=== PATIENT | male | born 1945 | race Caucasian/White ===

== ENCOUNTER → 2016-07-07 | Outpatient (CLI) | payer MEDICARE ==
[~2016-07-07] MED LIST: ALLOPURINOL300 MG PO; APAP/HYDROCODON1 T46 PO; ASPIRIN81 M1 PO; CATAFLAM50 MG PO; COLCRYS0.6 MG PO; COREG25 MG PO; COREG3.125 MG PO; COUMADIN4 M1 PO; COUMADIN5 M2 PO; COUMADIN6 M1 PO; COUMADIN7.5 M1 PO; DARVOCET N 1001 TAB PO; DAYPRO600 M1 PO; DIPHENHYDRAMINE25 M2 PO; FISH OIL 10001000 MG PO; FLEXERIL10 MG PO; INDOCIN25 MG PO; INDOCIN50 MG PO; JANTOVEN6 MG PO; K-DUR20 MEQ PO; LIPITOR20 MG PO; LOVENOX80 MG/0.8 SC; Lotrimin 1%15 GM PO; MEDROL DOSEPAK4 MG PO; MULTI VITAMINS1 TAB PO; MULTIPLE VITAMI1 CAP PO; NEXIUM20 MG PO; NORFLEX100 MG PO; PERCOCET 325 MG1 TA3 PO; PHENERGAN25 M1 PO; POTASSIUM20 MEQ PO; TRAMADOL HCL50 MG PO; TRIAM/HCTZ; TRIAMTERENE/HCT1 TAB PO; TRILIPIX; TRILIPIX45 MG PO; ULTRAM50 MG PO; VICO10300 PO; VICODIN 5/500 505 MG PO; VICODIN 500 MG-1 TAB PO; VITAMIN D; VITAMIN D1000 IU PO; ZOFRAN ODT4 MG SL; [UNRECOGNIZED DRUG - REMARK]; [UNRECOGNIZED DRUG - REMARK]
== END | disposition home or self-care (01) ==
LOC: RAD 02:57
DX: K57.90 Diverticulosis of intestine, part unspecified, without perforation or abscess without bleeding (principal); F45.8 Other somatoform disorders; R22.1 Localized swelling, mass and lump, neck

== ENCOUNTER → 2017-07-06 | Outpatient (CLI) | payer MEDICARE ==
[2017-07-06 08:43] LABS: CREATININE 0.95 mg/dL (0.70-1.30)
== END | disposition home or self-care (01) ==
LOC: CT 00:26 → LAB 00:26 → CT 09:00
PROVIDERS: Radiology Diagnostic Radiology
DX: I71.2 Thoracic aortic aneurysm, without rupture (principal); Z95.1 Presence of aortocoronary bypass graft; Z85.828 Personal history of other malignant neoplasm of skin

== ENCOUNTER → 2017-12-05 | Outpatient (CLI) | payer MEDICARE | END | disposition home or self-care (01) | LOC: CT 12:54 → LAB 12:54 | DX: M47.892 Other spondylosis, cervical region (principal); E04.1 Nontoxic single thyroid nodule ==

== ENCOUNTER → 2018-03-29 | Outpatient (CLI) | payer MEDICARE ==
[~2018-03-29] MED LIST changes: +AMLODIPINE BES2.5 MG PO; +LISINOPRIL20 MG PO
== END | disposition home or self-care (01) ==
LOC: CT 13:13
DX: I72.8 Aneurysm of other specified arteries (principal)

== ENCOUNTER → 2018-05-17 | Outpatient (CLI) | payer MEDICARE ==
--- NOTE | ~2018-05-17 | EKG ---
[place], [place] ELECTROCARDIOGRAM REPORT NAME: BILL PEREIRA UNIT #: [id number] ROOM: DOCTOR: EPIPHANY DRAFT REPORT BIRTHDATE: [birth year] [facility] Test Date: 2018-05-17 Test Time: 09:27:43 Pat Name: BILL PEREIRA Department: Room: Gender: Inspecting Machine Adjuster: Lisa Maldonado : 1945 Requested By: MIKEY ROSS Order Number: [id number] Reading MD: Ric Erwin MD Measurements Intervals [place] Rate: 55 P: 30 CO: 164 QRS: 12 QRSD: 104 T: 21 QT: 436 QTc: 417 Interpretive Statements Sinus bradycardia Baseline wander in lead(s) II,III,aVF,V5 No previous ECG available for comparison Electronically Signed On 05-17-2018 16:03:30 PST by Ric Erwin MD CM:EKGRPT:ELECTROCARDIOGRAM REPORT [id number] MIKEY ROSS EPIPHANY DRAFT REPORT MIKEY JAINREY CODY
[2018-05-17 09:29] LABS: BASO % 0.5 % (0.0-1.0); EOS # 0.1 10*3/uL (0.0-0.4); EOS % 1.2 % (1.0-4.0); HEMATOCRIT 43.1 % (42.0-52.0); HEMOGLOBIN 13.7 g/dl (14.0-18.0); LYMPH # 1.4 10*3/uL (1.3-4.4); LYMPH % 24.9 % (27.0-41.0); MEAN CORPUSCULAR HGB 30.5 pg (27.0-31.0); MEAN CORPUSCULAR HGB CONC 31.8 g/dl (33.0-37.0); MEAN PLATELET VOLUME 13.4 fl (9.6-12.3); MONO # 0.5 10*3/uL (0.1-1.0); MONO % 9.3 % (3.0-9.0); NEUT # 3.7 10*3/uL (2.3-7.9); NEUT % 63.9 % (47.0-73.0); PLATELET COUNT AUTOMATED 126 10*3/uL (130-400); RED BLOOD COUNT 4.49 10*6/uL (4.50-5.90); RED CELL DISTRI WIDTH 12.6 % (0-14.5); WHITE BLOOD COUNT 5.8 10*3/uL (4.8-10.8)
[2018-05-17 09:32] LABS: BUN 17 mg/dl (7-24); CHLORIDE 104 mmol/L (98-107); CREATININE 0.93 mg/dL (0.70-1.30); POTASSIUM 4.2 mmol/L (3.5-5.1); SODIUM 140 mmol/L (136-145)
[2018-05-17 09:40] LABS: INTERNATIONAL NORM RATIO 1.1 (2.0-3.5)
== END | disposition home or self-care (01) ==
LOC: LAB 08:36
PROVIDERS: Internal Medicine
DX: I71.2 Thoracic aortic aneurysm, without rupture (principal); Z01.818 Encounter for other preprocedural examination; I10 Essential (primary) hypertension

== ENCOUNTER 2018-10-14 12:20 | Emergency (ER) | payer MEDICARE ==
[~2018-10-14] VITALS: Ht 177.8 cm; Wt 74.8 kg
[2018-10-14 12:22] VITALS: BP 131/72
[2018-10-14 12:40] LABS: BILIRUBIN NEGATIVE (NEGATIVE); BLOOD NEGATIVE (NEGATIVE); CLARITY CLEAR (CLEAR); COLOR STRAW (YELLOW); GLUCOSE NEGATIVE (NEGATIVE); KETONE NEGATIVE (NEGATIVE); LEUKO ESTERASE NEGATIVE (NEGATIVE); NITRITE NEGATIVE (NEGATIVE); UROBILINOGEN 0.2 E.U./dl (0.2-1.0)
[2018-10-14 12:55] LABS: BASO % 0.3 % (0.0-1.0); EOS # 0.1 10*3/uL (0.0-0.4); EOS % 1.3 % (1.0-4.0); HEMATOCRIT 37.8 % (42.0-52.0); HEMOGLOBIN 12.2 g/dl (14.0-18.0); LYMPH # 1.8 10*3/uL (1.3-4.4); LYMPH % 28.2 % (27.0-41.0); MEAN CELL VOLUME 91.7 fl (80.0-94.0); MEAN CORPUSCULAR HGB 29.6 pg (27.0-31.0); MEAN CORPUSCULAR HGB CONC 32.3 g/dl (33.0-37.0); MEAN PLATELET VOLUME 11.7 fl (9.6-12.3); MONO # 0.5 10*3/uL (0.1-1.0); MONO % 7.3 % (3.0-9.0); NEUT % 62.7 % (47.0-73.0); PLATELET COUNT AUTOMATED 164 10*3/uL (130-400); RED BLOOD COUNT 4.12 10*6/uL (4.50-5.90); RED CELL DISTRI WIDTH 14.3 % (0-14.5); WHITE BLOOD COUNT 6.3 10*3/uL (4.8-10.8)
[2018-10-14 13:10] LABS: ALBUMIN 3.6 gm/dl (3.1-4.5); ALKALINE PHOSPHATASE 72 U/L (45-117); BUN 15 mg/dl (7-24); CHLORIDE 111 mmol/L (98-107); CREATININE 0.79 mg/dL (0.70-1.30); LIPASE 126 U/L (73-393); SGOT/AST 27 IU/L (3-35); SGPT/ALT 23 U/L (12-78); SODIUM 145 mmol/L (136-145); TOTAL PROTEIN 6.9 gm/dL (6.4-8.2)
[2018-10-14 13:20] LABS: RBC 0-2 rbc/hpf (0-2)
== END 2018-10-14 15:03 | disposition home or self-care (01) ==
LOC: ED 12:20
PROVIDERS: Emergency Medicine
DX: M54.9 Dorsalgia, unspecified (principal); R10.9 Unspecified abdominal pain; R42 Dizziness and giddiness; R06.02 Shortness of breath; Z91.041 Radiographic dye allergy status; Z88.6 Allergy status to analgesic agent; Z88.8 Allergy status to other drugs, medicaments and biological substances; Z88.5 Allergy status to narcotic agent; Z79.899 Other long term (current) drug therapy; Z90.49 Acquired absence of other specified parts of digestive tract; Z87.442 Personal history of urinary calculi; X50.0XXA Overexertion from strenuous movement or load, initial encounter; Y93.89 Activity, other specified; Y92.89 Other specified places as the place of occurrence of the external cause; Y99.8 Other external cause status

== ENCOUNTER 2019-06-23 15:54 | Inpatient (IN) | payer MEDICARE ==
[~2019-06-23] VITALS: Ht 177.8 cm; Wt 83.9 kg
[2019-06-23 16:14] VITALS: BP 165/76
[2019-06-23 16:48] LABS: BASO % 0.4 % (0.0-1.0); EOS # 0.1 10*3/uL (0.0-0.4); EOS % 0.9 % (1.0-4.0); HEMATOCRIT 40.7 % (42.0-52.0); LYMPH # 1.5 10*3/uL (1.3-4.4); LYMPH % 27.8 % (27.0-41.0); MEAN CELL VOLUME 96.9 fl (80.0-94.0); MEAN CORPUSCULAR HGB 31.4 pg (27.0-31.0); MEAN CORPUSCULAR HGB CONC 32.4 g/dl (33.0-37.0); MEAN PLATELET VOLUME 11.5 fl (9.6-12.3); MONO # 0.5 10*3/uL (0.1-1.0); MONO % 8.7 % (3.0-9.0); NEUT # 3.3 10*3/uL (2.3-7.9); PLATELET COUNT AUTOMATED 155 10*3/uL (130-400); RED CELL DISTRI WIDTH 13.1 % (0-14.5); WHITE BLOOD COUNT 5.3 10*3/uL (4.8-10.8)
[2019-06-23 17:00] LABS: INTERNATIONAL NORM RATIO 1.7 (2.0-3.5)
[2019-06-23 17:05] LABS: ALBUMIN 3.6 gm/dl (3.1-4.5); ALKALINE PHOSPHATASE 56 U/L (45-117); BUN 16 mg/dl (7-24); CHLORIDE 113 mmol/L (98-107); CREATININE 0.88 mg/dL (0.70-1.30); LIPASE 114 U/L (73-393); POTASSIUM 3.8 mmol/L (3.5-5.1); SGOT/AST 26 IU/L (3-35); SGPT/ALT 27 U/L (12-78); SODIUM 144 mmol/L (136-145); TOTAL PROTEIN 6.9 gm/dL (6.4-8.2)
[2019-06-23 17:08] LABS: TROPONIN I < 0.015 ng/ml (<0.045)
[2019-06-23 17:40] VITALS: BP 149/71
[2019-06-23 18:35] VITALS: BP 140/70
[2019-06-23 19:26] VITALS: BP 119/77
[2019-06-23 20:20] VITALS: BP 130/84
[2019-06-23] MEDS ORDERED: WARFARIN SODIUM3 MG PO (20:59)
[2019-06-23] MEDS ORDERED: WARFARIN SOD5 MG PO (20:59)
[2019-06-23] MEDS ORDERED: METOPROLOL25 MG PO (21:02)
[2019-06-24] VITALS: BP 130/80
[2019-06-24 06:05] LABS: ALBUMIN 3.6 gm/dl (3.1-4.5); ALKALINE PHOSPHATASE 56 U/L (45-117); BUN 14 mg/dl (7-24); CHLORIDE 109 mmol/L (98-107); CHOLESTEROL 138 mg/dL (<200); CREATININE 0.76 mg/dL (0.70-1.30); HDL CHOLESTEROL 55 mg/dl (40-60); LDL CHOLESTEROL 64 mg/dL (9-159); PHOSPHOROUS 2.5 mg/dL (2.5-4.9); POTASSIUM 3.6 mmol/L (3.5-5.1); SGOT/AST 29 IU/L (3-35); SGPT/ALT 24 U/L (12-78); SODIUM 141 mmol/L (136-145); TRIGLYCERIDES 95 mg/dl (<150); VLDL CHOLESTEROL 19 mg/dL (6-40)
[2019-06-24 06:14] LABS: BASO % 0.5 % (0.0-1.0); EOS # 0.1 10*3/uL (0.0-0.4); EOS % 1.7 % (1.0-4.0); HEMATOCRIT 40.1 % (42.0-52.0); LYMPH % 30.5 % (27.0-41.0); MEAN CELL VOLUME 96.2 fl (80.0-94.0); MEAN CORPUSCULAR HGB 30.9 pg (27.0-31.0); MEAN CORPUSCULAR HGB CONC 32.2 g/dl (33.0-37.0); MEAN PLATELET VOLUME 12.1 fl (9.6-12.3); MONO # 0.5 10*3/uL (0.1-1.0); MONO % 8.3 % (3.0-9.0); NEUT # 3.8 10*3/uL (2.3-7.9); NEUT % 58.7 % (47.0-73.0); PLATELET COUNT AUTOMATED 167 10*3/uL (130-400); RED BLOOD COUNT 4.17 10*6/uL (4.50-5.90); RED CELL DISTRI WIDTH 13.1 % (0-14.5); WHITE BLOOD COUNT 6.5 10*3/uL (4.8-10.8)
[2019-06-24 06:56] LABS: VITAMIN D, 25-HYDROXY 21.1 ng/mL (30-100)
[2019-06-24 08:00] VITALS: BP 148/78
[2019-06-24 12:00] VITALS: BP 130/70
== END 2019-06-24 14:47 | disposition home health service (06) | DRG 206 ==
LOC: ED 15:54 → 5E 18:51 → EDHOLD 18:51 → 5E 19:37
PROVIDERS: Emergency Medicine; Internal Medicine; ADMIT Family Medicine
DX: M94.0 Chondrocostal junction syndrome [Tietze] (principal); D68.69 Other thrombophilia; R50.9 Fever, unspecified; E87.8 Other disorders of electrolyte and fluid balance, not elsewhere classified; M19.90 Unspecified osteoarthritis, unspecified site; M1A.9XX0 Chronic gout, unspecified, without tophus (tophi); Z20.828 Contact with and (suspected) exposure to other viral communicable diseases; R05 Cough; R06.00 Dyspnea, unspecified; R51 Headache; D53.9 Nutritional anemia, unspecified; Z88.2 Allergy status to sulfonamides; Z88.6 Allergy status to analgesic agent; Z91.041 Radiographic dye allergy status; Z88.8 Allergy status to other drugs, medicaments and biological substances; Z88.5 Allergy status to narcotic agent; Z87.442 Personal history of urinary calculi; Z95.2 Presence of prosthetic heart valve; Z90.49 Acquired absence of other specified parts of digestive tract; Z82.49 Family history of ischemic heart disease and other diseases of the circulatory system; Z79.01 Long term (current) use of anticoagulants

== ENCOUNTER 2019-10-17 16:56 | Observation (INO) | payer MEDICARE ==
[~2019-10-17] VITALS: Ht 177.8 cm; Wt 86.3 kg
[~2019-10-17 16:56] MED LIST changes: +METOPROLOL25 MG PO; +WARFARIN SOD5 MG PO; +WARFARIN SODIUM3 MG PO
[2019-10-17 17:00] VITALS: BP 129/69
--- NOTE | 2019-10-17 18:15 | NUR ---
NECK COLLAR APPLIED PER PHYSICIAN ORDER. PT TOLERATED.
[2019-10-17 18:27] LABS: BASO % 0.2 % (0.0-1.0); EOS % 0.1 % (1.0-4.0); HEMATOCRIT 40.6 % (42.0-52.0); LYMPH # 1.1 10*3/uL (1.3-4.4); MEAN CELL VOLUME 93.1 fl (80.0-94.0); MEAN CORPUSCULAR HGB 30.7 pg (27.0-31.0); MEAN PLATELET VOLUME 11.6 fl (9.6-12.3); MONO # 0.2 10*3/uL (0.1-1.0); MONO % 2.3 % (3.0-9.0); NEUT # 8.8 10*3/uL (2.3-7.9); NEUT % 86.2 % (47.0-73.0); PLATELET COUNT AUTOMATED 165 10*3/uL (130-400); RED BLOOD COUNT 4.36 10*6/uL (4.50-5.90); RED CELL DISTRI WIDTH 13.2 % (0-14.5); WHITE BLOOD COUNT 10.2 10*3/uL (4.8-10.8)
[2019-10-17 18:38] LABS: ACT PARTIAL THROMBO TIME 39.5 SECONDS (20.0-32.1); INTERNATIONAL NORM RATIO 2.4 (2.0-3.5)
[2019-10-17 18:40] LABS: CLARITY CLEAR (CLEAR); COLOR YELLOW (YELLOW); GLUCOSE NEGATIVE (NEGATIVE)
[2019-10-17 18:41] LABS: BILIRUBIN NEGATIVE (NEGATIVE); BLOOD NEGATIVE (NEGATIVE); KETONE NEGATIVE (NEGATIVE); LEUKO ESTERASE NEGATIVE (NEGATIVE); NITRITE NEGATIVE (NEGATIVE); SPECIFIC GRAVITY 1.005 (1.005-1.030); UROBILINOGEN 0.2 E.U./dl (0.2-1.0)
[2019-10-17 18:42] LABS: ALBUMIN 3.8 gm/dl (3.1-4.5); ALKALINE PHOSPHATASE 55 U/L (45-117); BUN 10 mg/dl (7-24); CHLORIDE 106 mmol/L (98-107); CREATININE 0.94 mg/dL (0.70-1.30); LIPASE 104 U/L (73-393); POTASSIUM 3.4 mmol/L (3.5-5.1); SGOT/AST 30 IU/L (3-35); SGPT/ALT 33 U/L (12-78); SODIUM 142 mmol/L (136-145); TOTAL PROTEIN 7.5 gm/dL (6.4-8.2)
[2019-10-17 18:47] LABS: TROPONIN I < 0.015 ng/ml (<0.045)
[2019-10-17 18:48] LABS: BACTERIA TRACE; EPITHELIAL CELLS 0-2; RBC 0-2 rbc/hpf (0-2); WBC 0-2 wbc/hpf (0-5)
[2019-10-17 19:18] VITALS: BP 144/63
--- NOTE | 2019-10-17 19:18 | NUR ---
HAND OFF RECEIVED FROM DARRYN CHAU PT RESTING WITH EYES CLOSED UPON ENTERING ROOM AND AWAKENS TO VERBAL STIMULI. ALERT AND ORIENTED. SKIN WARM AND DRY. RESPIRATIONS EVEN AND UNLABORED. DENYING ANY PAINS AT TIME. DENYING ANY NAUSEA OR VOMITING AT TIME. PT STATES THAT HE WAS CUTTING HIS GRASS TODAY AND HAD A FEW BEERS. STATES THAT HE DRINKS 2-3 BEERS ONLY WHEN CUTTING GRASS ABOUT 2-3 TIMES A WEEK. STATES THAT HE WAS NAUSEATED AND BEGAN VOMITING WHEN HE RAN OUT SIDE FALLING DOWN 3-4 STEPS UNABLE TO GET UP. C-COLLAR REMAINS ON. PT FOLLOWING COMMANDS. SPEECH CLEAR. NO DISTRESS NOTED AT TIME. CONTINUING TO MONITOR.
--- NOTE | 2019-10-17 21:01 | NUR ---
attempted to call krystle as requested by pt to update her about him. no answer and voicemail is full.
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
[2019-10-17 22:30] VITALS: BP 146/70
[2019-10-17 22:34] VITALS: BP 135/61
--- NOTE | 2019-10-17 23:30 | NUR ---
A 74, admitted to , under the services of BIJU Blanco DO with a diagnosis of ALCOHOL INTOXICATION. Chief complaint is FELL DOWN STEPS, PASSED OUT, VOMITTING. Patient arrived via stretcher from ER. Monitor applied. Initial assessment completed. Vital signs taken and recorded. BIJU BLANCO DO notified of admission to the unit. Orders received. See assessment for past medical history, medications and allergies. Patient and/or family oriented to unit. [address] visitation policy reviewed. Clothing/patient valuable form completed. ANT RUVALCABA
[2019-10-18] MEDS ORDERED: MVI PO (00:02)
[2019-10-18] MEDS ORDERED: IRON PO (00:02)
--- NOTE | 2019-10-18 00:28 | NUR ---
MEDICATED WITH PO NORCO ORDERED PER PT REQUEST FOR C/O NECK/BACK/HEADACHE PAIN RATED 7/10.
--- NOTE | 2019-10-18 01:07 | NUR ---
MESSAGE LEFT FOR CONSULT WITH ANSWERING SERVICE.
--- NOTE | 2019-10-18 01:53 | NUR ---
MEDICATION EFFECTIVE PAIN.
[2019-10-18 06:10] LABS: ALBUMIN 3.4 gm/dl (3.1-4.5); BUN 11 mg/dl (7-24); CHLORIDE 111 mmol/L (98-107); POTASSIUM 3.9 mmol/L (3.5-5.1); SODIUM 143 mmol/L (136-145)
[2019-10-18 06:11] LABS: BASO % 0.4 % (0.0-1.0); EOS # 0.1 10*3/uL (0.0-0.4); EOS % 1.5 % (1.0-4.0); HEMATOCRIT 42.1 % (42.0-52.0); LYMPH # 2.3 10*3/uL (1.3-4.4); LYMPH % 32.5 % (27.0-41.0); MEAN CELL VOLUME 95.7 fl (80.0-94.0); MEAN CORPUSCULAR HGB 30.2 pg (27.0-31.0); MEAN CORPUSCULAR HGB CONC 31.6 g/dl (33.0-37.0); MEAN PLATELET VOLUME 11.8 fl (9.6-12.3); MONO # 0.6 10*3/uL (0.1-1.0); MONO % 8.2 % (3.0-9.0); NEUT # 4.1 10*3/uL (2.3-7.9); NEUT % 57.3 % (47.0-73.0); PLATELET COUNT AUTOMATED 150 10*3/uL (130-400); RED CELL DISTRI WIDTH 13.7 % (0-14.5); WHITE BLOOD COUNT 7.2 10*3/uL (4.8-10.8)
[2019-10-18 06:17] LABS: INTERNATIONAL NORM RATIO 2.4 (2.0-3.5)
[2019-10-18 06:21] LABS: ALKALINE PHOSPHATASE 51 U/L (45-117); CREATININE 0.75 mg/dL (0.70-1.30); SGOT/AST 26 IU/L (3-35); SGPT/ALT 30 U/L (12-78); THYROID STIM HORMONE (HS) 0.937 uIU/ml (0.358-4.75)
--- NOTE | 2019-10-18 07:36 | NUR ---
[facility] CONSULT CALLED.
[2019-10-18 08:00] VITALS: BP 140/70
--- NOTE | 2019-10-18 12:34 | NUR ---
Telegraphic Typewriter Installer in to talk to patient. Patient states lives at HOME with DAUGHTER. There are 15 steps in the home. Physician: DR. CALLAWAY Pharmacy: [facility] Home health services: NONE Patient's level of ADLs: INDEPENDENT Patient has working utilities: YES DME: NONE Follow-up physician's appointment after d/c: WILL BE MADE BY HOSPTIALIST RN DIRECTOR ON DISCHARGE. Does patient want to access PORTAL?: NO Discharge plan BLENDING TANK TENDER HELPER SPOKE WITH THE PATIENT. PATIENT STATED HIS DAUGHTER IS NOW RESIDING WITH HIM AT HOME. THE PATIENT STATED HE IS INDEPENDENT WITH HIS ADLS/IADLS. PATIENT STATED HE HAS NO CONCERNS UPON DISCHARGE WHEN ASKED ABOUT HOME HEALTH. PATIENT STATED HE IS INDEPENDENT. PATIENT STATED HIS DAUGHTER IS ABLE TO TRANSPORT UPON DISCHARGE IF BEFORE 2PM SHE HAS TO WORK. . ELIF REYES
--- NOTE | 2019-10-18 13:36 | NUR ---
Discharge instructions reviewed with patient/family. Patient receptive and verbalizes understanding. Follow-up care arranged. Written instructions given to patient/family. GODWIN SOTO
== END 2019-10-18 13:36 | disposition home or self-care (01) ==
LOC: ED 16:56 → EDHOLD 21:17 → 4E 21:45
PROVIDERS: Physician Assistant; Student in an Organized Health Care Education/Training Program; ADMIT Emergency Medicine
DX: F10.929 Alcohol use, unspecified with intoxication, unspecified (principal); R41.82 Altered mental status, unspecified; E87.2 Acidosis; R73.9 Hyperglycemia, unspecified; E87.6 Hypokalemia; D64.9 Anemia, unspecified; M19.90 Unspecified osteoarthritis, unspecified site

== ENCOUNTER 2021-03-06 07:51 | Emergency (ER) | payer MEDICARE ==
[~2021-03-06 07:51] MED LIST changes: +IRON PO; +MVI PO
[2021-03-06 07:57] VITALS: BP 103/69
[2021-03-06 08:33] LABS: BASO % 0.3 % (0.0-1.0); EOS % 0.5 % (1.0-4.0); HEMATOCRIT 40.2 % (42.0-52.0); LYMPH # 1.3 10*3/uL (1.3-4.4); LYMPH % 15.3 % (27.0-41.0); MEAN CELL VOLUME 95.7 fl (80.0-94.0); MEAN CORPUSCULAR HGB 31.4 pg (27.0-31.0); MEAN CORPUSCULAR HGB CONC 32.8 g/dl (33.0-37.0); MONO # 0.8 10*3/uL (0.1-1.0); MONO % 9.3 % (3.0-9.0); NEUT # 6.4 10*3/uL (2.3-7.9); NEUT % 74.4 % (47.0-73.0); PLATELET COUNT AUTOMATED 189 10*3/uL (130-400); RED CELL DISTRI WIDTH 13.4 % (0-14.5); WHITE BLOOD COUNT 8.7 10*3/uL (4.8-10.8)
[2021-03-06 08:43] LABS: INTERNATIONAL NORM RATIO 4.3 (2.0-3.5)
[2021-03-06 08:52] LABS: ALBUMIN 3.6 gm/dl (3.1-4.5); ALKALINE PHOSPHATASE 59 U/L (45-117); BUN 18 mg/dl (7-24); CHLORIDE 110 mmol/L (98-107); CREATININE 0.82 mg/dL (0.70-1.30); POTASSIUM 3.4 mmol/L (3.5-5.1); SGOT/AST 36 IU/L (3-35); SGPT/ALT 27 U/L (12-78); SODIUM 142 mmol/L (136-145); TOTAL PROTEIN 7.4 gm/dL (6.4-8.2)
[2021-03-06 09:47] LABS: BILIRUBIN Negative (Negative); BLOOD Negative (Negative); CLARITY Clear (Clear); COLOR Yellow (Yellow); GLUCOSE Negative (Negative); KETONE Trace (Negative); LEUKO ESTERASE Negative (Negative); NITRITE Negative (Negative); PH 5.5 (4.5-8.0); SPECIFIC GRAVITY 1.015 (1.001-1.030); UROBILINOGEN 0.2 E.U./dl (0.0-1.0)
[2021-03-06 09:55] LABS: EPITHELIAL CELLS 0-2; RBC 0-2 rbc/hpf (0-2)
== END 2021-03-06 10:26 | disposition home or self-care (01) ==
LOC: ED 07:51
PROVIDERS: Internal Medicine
DX: S09.90XA Unspecified injury of head, initial encounter (principal); R79.1 Abnormal coagulation profile; W18.39XA Other fall on same level, initial encounter; Y93.89 Activity, other specified; Y92.89 Other specified places as the place of occurrence of the external cause; Y99.8 Other external cause status

== ENCOUNTER 2021-12-21 19:53 | Emergency (ER) | payer MEDICARE ==
[~2021-12-21] VITALS: Ht 177.8 cm; Wt 77.1 kg
[2021-12-21 20:03] VITALS: BP 173/73
[2021-12-21 20:27] LABS: BASO % 0.4 % (0.0-1.0); EOS # 0.1 10*3/uL (0.0-0.4); EOS % 1.2 % (1.0-4.0); HEMATOCRIT 39.9 % (42.0-52.0); LYMPH # 2.2 10*3/uL (1.3-4.4); LYMPH % 30.2 % (27.0-41.0); MEAN CELL VOLUME 93.2 fl (80.0-94.0); MEAN CORPUSCULAR HGB 30.8 pg (27.0-31.0); MEAN CORPUSCULAR HGB CONC 33.1 g/dl (33.0-37.0); MONO # 0.6 10*3/uL (0.1-1.0); MONO % 8.6 % (3.0-9.0); NEUT # 4.4 10*3/uL (2.3-7.9); NEUT % 59.5 % (47.0-73.0); PLATELET COUNT AUTOMATED 175 10*3/uL (130-400); RED BLOOD COUNT 4.28 10*6/uL (4.50-5.90); WHITE BLOOD COUNT 7.4 10*3/uL (4.8-10.8)
[2021-12-21 20:58] LABS: ALKALINE PHOSPHATASE 63 U/L (45-117); BUN 16 mg/dl (7-24); CHLORIDE 110 mmol/L (98-107); CREATININE 0.76 mg/dL (0.70-1.30); POTASSIUM 3.7 mmol/L (3.5-5.1); SGOT/AST 24 IU/L (3-35); SGPT/ALT 25 U/L (12-78); SODIUM 143 mmol/L (136-145)
== END 2021-12-21 21:30 | disposition home or self-care (01) ==
LOC: ED 19:53
PROVIDERS: Physician Assistant
DX: R07.89 Other chest pain (principal); R51.9 Headache, unspecified; Z91.041 Radiographic dye allergy status; Z88.6 Allergy status to analgesic agent; Z88.8 Allergy status to other drugs, medicaments and biological substances; Z88.5 Allergy status to narcotic agent; Z79.899 Other long term (current) drug therapy; Z79.01 Long term (current) use of anticoagulants; Z87.442 Personal history of urinary calculi; Z98.890 Other specified postprocedural states; W18.09XA Striking against other object with subsequent fall, initial encounter; Y93.89 Activity, other specified; Y92.098 Other place in other non-institutional residence as the place of occurrence of the external cause; Y99.8 Other external cause status

== ENCOUNTER 2022-12-15 15:35 | Emergency (ER) | payer MEDICARE ==
[~2022-12-15] VITALS: Ht 172.7 cm; Wt 82.1 kg
[~2022-12-15 15:35] MED LIST changes: +ATORVASTATIN CA40 M1 PO; +Coumadin5 MG PO; +DONEPEZIL HYDROC5 MG PO; +ENOXAPARIN100 MG/1 M SC; +GENTAMICIN60 MG/6 ML IV; +MIRTAZAPINE15 M1 PO; +NAMENDA-5 PO; +QUETIAPINE FUMA50 M1 PO; +RISPERDAL0.5 MG PO; +RIVASTIGMINE T1.5 M1 PO; +SODIUM-POTASSI1 EACH PO; +VITAMIN D350 MCG PO; +WARFARIN SODIUM10 MG PO
[2022-12-15 15:40] VITALS: BP 138/78
[2022-12-15 16:14] LABS: BASO % 0.6 % (0.0-1.0); EOS # 0.1 10*3/uL (0.0-0.4); EOS % 1.7 % (1.0-4.0); HEMATOCRIT 38.9 % (42.0-52.0); LYMPH # 1.3 10*3/uL (1.3-4.4); MEAN CELL VOLUME 88.4 fl (80.0-94.0); MEAN CORPUSCULAR HGB 29.5 pg (27.0-31.0); MEAN CORPUSCULAR HGB CONC 33.4 g/dl (33.0-37.0); MEAN PLATELET VOLUME 11.9 fl (9.6-12.3); MONO # 0.4 10*3/uL (0.1-1.0); NEUT # 3.5 10*3/uL (2.3-7.9); NEUT % 65.5 % (47.0-73.0); PLATELET COUNT AUTOMATED 162 10*3/uL (130-400); RED CELL DISTRI WIDTH 13.2 % (0-14.5); WHITE BLOOD COUNT 5.3 10*3/uL (4.8-10.8)
[2022-12-15 16:37] LABS: ALKALINE PHOSPHATASE 65 U/L (46-116); BUN 16 mg/dl (9-23); CHLORIDE 106 mmol/L (98-107); POTASSIUM 3.9 mmol/L (3.4-5.1); SGPT/ALT 14 U/L (10-49); TOTAL PROTEIN 6.9 gm/dL (6.0-8.0)
== END 2022-12-15 19:59 | disposition home or self-care (01) ==
LOC: ED 15:35
PROVIDERS: Nurse Practitioner
DX: Z04.3 Encounter for examination and observation following other accident (principal); I10 Essential (primary) hypertension; Z86.73 Personal history of transient ischemic attack (TIA), and cerebral infarction without residual deficits; K21.9 Gastro-esophageal reflux disease without esophagitis; Z87.442 Personal history of urinary calculi; M10.9 Gout, unspecified; Z91.041 Radiographic dye allergy status; Z88.6 Allergy status to analgesic agent; Z88.5 Allergy status to narcotic agent; Z88.8 Allergy status to other drugs, medicaments and biological substances; Z98.890 Other specified postprocedural states; Z95.5 Presence of coronary angioplasty implant and graft; Z90.49 Acquired absence of other specified parts of digestive tract

== ENCOUNTER 2023-02-02 05:54 | Emergency (ER) | payer MEDICARE ==
[~2023-02-02] VITALS: Ht 165.1 cm; Wt 68.0 kg
[2023-02-02 05:57] VITALS: BP 199/92
== END 2023-02-02 08:19 | disposition home or self-care (01) ==
LOC: ED 05:54
DX: M25.562 Pain in left knee (principal); K21.9 Gastro-esophageal reflux disease without esophagitis; Z87.442 Personal history of urinary calculi; M10.9 Gout, unspecified; I10 Essential (primary) hypertension; Z86.73 Personal history of transient ischemic attack (TIA), and cerebral infarction without residual deficits; Z91.041 Radiographic dye allergy status; Z88.6 Allergy status to analgesic agent; Z88.5 Allergy status to narcotic agent; Z88.8 Allergy status to other drugs, medicaments and biological substances; Z98.890 Other specified postprocedural states; Z95.5 Presence of coronary angioplasty implant and graft; Z90.49 Acquired absence of other specified parts of digestive tract

== ENCOUNTER 2023-03-21 21:18 | Emergency (ER) | payer MEDICARE ==
[~2023-03-21] VITALS: Wt 74.6 kg
[2023-03-21 21:19] VITALS: BP 136/79
[2023-03-21 22:00] LABS: BASO # 0.1 10*3/uL (0.0-0.1); BASO % 0.9 % (0.0-1.0); EOS % 0.7 % (1.0-4.0); HEMATOCRIT 39.5 % (42.0-52.0); LYMPH # 1.6 10*3/uL (1.3-4.4); MEAN CELL VOLUME 92.7 fl (80.0-94.0); MEAN CORPUSCULAR HGB 29.1 pg (27.0-31.0); MEAN CORPUSCULAR HGB CONC 31.4 g/dl (33.0-37.0); MEAN PLATELET VOLUME 12.4 fl (9.6-12.3); MONO # 0.5 10*3/uL (0.1-1.0); MONO % 8.5 % (3.0-9.0); NEUT # 3.6 10*3/uL (2.3-7.9); NEUT % 62.7 % (47.0-73.0); PLATELET COUNT AUTOMATED 143 10*3/uL (130-400); RED BLOOD COUNT 4.26 10*6/uL (4.50-5.90); RED CELL DISTRI WIDTH 12.5 % (0-14.5); WHITE BLOOD COUNT 5.8 10*3/uL (4.8-10.8)
[2023-03-21 22:16] LABS: ACT PARTIAL THROMBO TIME 27.6 SECONDS (20.0-32.1)
[2023-03-21 22:19] LABS: ALKALINE PHOSPHATASE 64 U/L (46-116); BUN 9 mg/dl (9-23); CHLORIDE 108 mmol/L (98-107); POTASSIUM 3.5 mmol/L (3.4-5.1); SGPT/ALT 18 U/L (5-49); TOTAL PROTEIN 6.9 gm/dL (6.0-8.0)
[2023-03-21 22:22] LABS: ETHYL ALCOHOL < 3.0 mg/dl (<3)
[2023-03-22 00:36] LABS: BILIRUBIN Negative (Negative); BLOOD Negative (Negative); CLARITY Clear (Clear); COLOR Yellow (Yellow); GLUCOSE Negative (Negative); KETONE Negative (Negative); LEUKO ESTERASE Negative (Negative); NITRITE Negative (Negative); PH 6.5 (4.5-8.0); SPECIFIC GRAVITY <= 1.005 (1.001-1.030); UROBILINOGEN 0.2 E.U./dl (0.0-1.0)
[2023-03-22 00:42] LABS: URINE AMPHETAMINES Negative (1000ng/ml); URINE BARBITURATES Negative (200ng/ml); URINE BENZODIAZEPINES Negative (200ng/ml); URINE CANNABINOIDS (THC) Negative (50ng/ml); URINE COCAINE Negative (300ng/ml); URINE METHADONE Negative (300ng/ml); URINE OPIATES Negative (300ng/ml); URINE PHENCYCLIDINE Negative (25ng/ml)
[2023-03-22 01:00] LABS: WBC 0-2 wbc/hpf (0-5)
== END 2023-03-22 10:52 | disposition home or self-care (01) ==
LOC: ED 21:18
PROVIDERS: Family Medicine
DX: F03.90 Unspecified dementia, unspecified severity, without behavioral disturbance, psychotic disturbance, mood disturbance, and anxiety (principal); M25.562 Pain in left knee; I10 Essential (primary) hypertension; Z86.73 Personal history of transient ischemic attack (TIA), and cerebral infarction without residual deficits; K21.9 Gastro-esophageal reflux disease without esophagitis; Z87.442 Personal history of urinary calculi; M10.9 Gout, unspecified; E78.00 Pure hypercholesterolemia, unspecified; R10.2 Pelvic and perineal pain; Z91.041 Radiographic dye allergy status; Z88.6 Allergy status to analgesic agent; Z88.5 Allergy status to narcotic agent; Z88.8 Allergy status to other drugs, medicaments and biological substances; Z98.890 Other specified postprocedural states; Z95.5 Presence of coronary angioplasty implant and graft; Z79.899 Other long term (current) drug therapy

== ENCOUNTER 2023-04-19 14:38 | Inpatient (IN) | payer MEDICARE, MEDICAID ==
[~2023-04-19] VITALS: Ht 177.8 cm; Wt 75.9 kg
[2023-04-19 14:49] VITALS: BP 141/52
[2023-04-19 15:02] LABS: BASO % 0.7 % (0.0-1.0); EOS # 0.1 10*3/uL (0.0-0.4); EOS % 2.5 % (1.0-4.0); LYMPH # 1.4 10*3/uL (1.3-4.4); LYMPH % 35.4 % (27.0-41.0); MEAN CELL VOLUME 92.9 fl (80.0-94.0); MEAN CORPUSCULAR HGB 29.3 pg (27.0-31.0); MEAN CORPUSCULAR HGB CONC 31.6 g/dl (33.0-37.0); MEAN PLATELET VOLUME 12.6 fl (9.6-12.3); MONO # 0.4 10*3/uL (0.1-1.0); MONO % 9.5 % (3.0-9.0); NEUT # 2.1 10*3/uL (2.3-7.9); NEUT % 51.7 % (47.0-73.0); PLATELET COUNT AUTOMATED 125 10*3/uL (130-400); RED BLOOD COUNT 4.09 10*6/uL (4.50-5.90)
[2023-04-19 15:13] LABS: ACT PARTIAL THROMBO TIME 28.3 SECONDS (20.0-32.1)
[2023-04-19 15:18] LABS: ALKALINE PHOSPHATASE 59 U/L (46-116); BUN 12 mg/dl (9-23); CHLORIDE 109 mmol/L (98-107); LIPASE 37 U/L (12-53); POTASSIUM 4.1 mmol/L (3.4-5.1); SGPT/ALT 23 U/L (5-49); TOTAL PROTEIN 6.5 gm/dL (6.0-8.0)
[2023-04-19] MEDS ORDERED: BISACODYL 10 MG SUPP R PRN (17:45)
[2023-04-19] MEDS ORDERED: Ondansetron Hydrochloride 4 MG/2 ML VIAL IV PRN (17:45)
[2023-04-19] MEDS ORDERED: BISACODYL 5 MG TAB PO PRN (17:45)
[2023-04-19] MEDS ORDERED: ACETAMINOPHEN 325 MG TAB PO PRN (17:45)
[2023-04-19] MEDS ORDERED: ACETAMINOPHEN 650 MG SUPP R PRN (17:45)
[2023-04-19] MEDS ORDERED: WARFARIN SODIUM 10 MG TAB PO SCH (18:00)
[2023-04-19 20:09] VITALS: BP 138/60
[2023-04-19 20:52] VITALS: BP 145/55
[2023-04-19] MEDS ORDERED: Enoxaparin Sodium 80 MG/0.8 ML SYR SC SCH (22:00)
[2023-04-19] MEDS ORDERED: Bacitracin Zinc 14 GM TUBE T SCH (22:00)
[2023-04-20] VITALS: BP 136/76; BP 145/56
[2023-04-20 05:40] LABS: ALKALINE PHOSPHATASE 55 U/L (46-116); BUN 11 mg/dl (9-23); CHLORIDE 109 mmol/L (98-107); CHOLESTEROL 135 mg/dL (<200); FREE T4 1.02 ng/dl (0.89-1.76); LDL CHOLESTEROL 81 mg/dL (9-159); POTASSIUM 3.8 mmol/L (3.4-5.1); SGPT/ALT 18 U/L (5-49); TOTAL PROTEIN 6.1 gm/dL (6.0-8.0); TRIGLYCERIDES 91 mg/dl (<150)
[2023-04-20 06:04] LABS: HEMATOCRIT 37.1 % (42.0-52.0); MEAN CELL VOLUME 93.2 fl (80.0-94.0); MEAN CORPUSCULAR HGB 29.1 pg (27.0-31.0); MEAN CORPUSCULAR HGB CONC 31.3 g/dl (33.0-37.0); MEAN PLATELET VOLUME 13.6 fl (9.6-12.3); PLATELET COUNT AUTOMATED 122 10*3/uL (130-400); RED BLOOD COUNT 3.98 10*6/uL (4.50-5.90); RED CELL DISTRI WIDTH 12.9 % (0-14.5)
[2023-04-20 06:47] LABS: VITAMIN D, 25-HYDROXY 31.1 ng/mL (30-100)
[2023-04-20 06:57] LABS: MANUAL DIFF REFLEX YES
[2023-04-20 07:00] LABS: ATYPICAL LYMPHS 2 % (0-0); PLATELET SUFFICIENCY LOW (NORMAL); TOTAL CELLS COUNTED 100 #CELLS
[2023-04-20 08:00] VITALS: BP 161/60
[2023-04-20 12:00] VITALS: BP 166/83
[2023-04-20 16:00] VITALS: BP 133/62
[2023-04-20] MEDS ORDERED: AQUAPHOR OINTMENT Base 50 GM TUBE T SCH (18:00)
[2023-04-20 20:00] VITALS: BP 160/62
[2023-04-20] MEDS ORDERED: FOAM BANDAGE 6X6 T ONE (23:46)
[2023-04-21] VITALS: BP 155/72
[2023-04-21 06:08] LABS: BUN 8 mg/dl (9-23); CHLORIDE 109 mmol/L (98-107); POTASSIUM 3.6 mmol/L (3.4-5.1)
[2023-04-21 06:20] LABS: MEAN CELL VOLUME 91.6 fl (80.0-94.0); MEAN CORPUSCULAR HGB CONC 31.7 g/dl (33.0-37.0); MEAN PLATELET VOLUME 13.2 fl (9.6-12.3); PLATELET COUNT AUTOMATED 120 10*3/uL (130-400); RED BLOOD COUNT 3.93 10*6/uL (4.50-5.90); WHITE BLOOD COUNT 4.8 10*3/uL (4.8-10.8)
[2023-04-21 06:22] LABS: MANUAL DIFF REFLEX YES
[2023-04-21 07:05] LABS: BASOPHILS 1 % (0-1); BURR CELLS FEW; PLATELET SUFFICIENCY LOW (NORMAL); POLYCHROMASIA SLIGHT; TOTAL CELLS COUNTED 100 #CELLS
[2023-04-21 08:00] VITALS: BP 160/72
[2023-04-21 12:00] VITALS: BP 131/92
[2023-04-21] MEDS ORDERED: ATORVASTATIN CA40 M1 PO (14:12)
[2023-04-21] MEDS ORDERED: WARFARIN SODIUM5 MG PO (14:16)
[2023-04-21] MEDS ORDERED: Coumadin7.5 MG PO (14:17)
[2023-04-21] MEDS ORDERED: CELEXA20 MG PO (14:17)
[2023-04-21] MEDS ORDERED: NATURE'S BLEND F1 MG PO (14:18)
[2023-04-21 16:00] VITALS: BP 151/84
[2023-04-21] MEDS ORDERED: LORazepam 0.5 MG TAB PO PRN (17:50)
[2023-04-21] MEDS ORDERED: QUETIAPINE FUMARATE 50 MG TAB PO SCH (19:00)
[2023-04-21 20:00] VITALS: BP 152/68
[2023-04-21] MEDS ORDERED: Donepezil Hydrochloride 5 MG TAB PO SCH (22:00)
[2023-04-21] MEDS ORDERED: ATORVASTATIN CALCIUM 40 MG TABLET PO SCH (22:00)
[2023-04-22] VITALS: BP 152/46
[2023-04-22 06:30] LABS: BASO % 0.4 % (0.0-1.0); EOS # 0.1 10*3/uL (0.0-0.4); EOS % 2.5 % (1.0-4.0); LYMPH # 2.5 10*3/uL (1.3-4.4); LYMPH % 50.8 % (27.0-41.0); MEAN CELL VOLUME 91.8 fl (80.0-94.0); MEAN CORPUSCULAR HGB 29.5 pg (27.0-31.0); MEAN CORPUSCULAR HGB CONC 32.2 g/dl (33.0-37.0); MEAN PLATELET VOLUME 12.8 fl (9.6-12.3); MONO # 0.5 10*3/uL (0.1-1.0); MONO % 9.5 % (3.0-9.0); NEUT # 1.8 10*3/uL (2.3-7.9); NEUT % 36.6 % (47.0-73.0); PLATELET COUNT AUTOMATED 122 10*3/uL (130-400); RED BLOOD COUNT 4.03 10*6/uL (4.50-5.90); RED CELL DISTRI WIDTH 13.2 % (0-14.5); WHITE BLOOD COUNT 4.8 10*3/uL (4.8-10.8)
[2023-04-22 06:49] LABS: BUN 8 mg/dl (9-23); CHLORIDE 107 mmol/L (98-107); POTASSIUM 3.5 mmol/L (3.4-5.1)
[2023-04-22 08:00] VITALS: BP 130/60
[2023-04-22] MEDS ORDERED: hydrOXYzine pamoate 25 MG CAP PO PRN (09:15)
[2023-04-22] MEDS ORDERED: FOLIC ACID 1 MG TAB PO SCH (10:00)
[2023-04-22] MEDS ORDERED: CITALOPRAM 20 MG TAB PO SCH (10:00)
[2023-04-22] MEDS ORDERED: CYANOCOBALAMIN 1,000 MCG/ML VIAL IM ONE ×2 (11:00→17:35)
[2023-04-22 12:00] VITALS: BP 153/63
[2023-04-22 16:00] VITALS: BP 152/70
[2023-04-22] MEDS ORDERED: FOAM BANDAGE 6X6 T ONE (18:44)
[2023-04-22 20:00] VITALS: BP 126/60
[2023-04-22] MEDS ORDERED: Memantine Hydrochloride 5 MG TAB PO SCH (21:00)
[2023-04-22] MEDS ORDERED: Rivastigmine Tartrate 4.6 MG/24 HR PATCH T SCH (21:00)
[2023-04-23] VITALS: BP 149/68
[2023-04-23 08:00] VITALS: BP 156/71
[2023-04-23 12:00] VITALS: BP 138/68
[2023-04-23 16:00] VITALS: BP 151/61
[2023-04-23 20:00] VITALS: BP 135/62
[2023-04-23] MEDS ORDERED: Enoxaparin Sodium 80 MG/0.8 ML SYR SC SCH (22:00)
[2023-04-24] VITALS: BP 136/59
[2023-04-24 08:00] VITALS: BP 152/69
[2023-04-24 12:00] VITALS: BP 140/78
[2023-04-24 16:00] VITALS: BP 119/65
[2023-04-24 20:00] VITALS: BP 139/59
[2023-04-25] VITALS: BP 140/70
[2023-04-25 06:03] LABS: BUN 12 mg/dl (9-23); CHLORIDE 107 mmol/L (98-107); POTASSIUM 3.7 mmol/L (3.4-5.1)
[2023-04-25 06:09] LABS: BASO % 0.6 % (0.0-1.0); EOS # 0.1 10*3/uL (0.0-0.4); EOS % 2.7 % (1.0-4.0); HEMATOCRIT 38.3 % (42.0-52.0); LYMPH # 2.3 10*3/uL (1.3-4.4); MEAN CELL VOLUME 92.5 fl (80.0-94.0); MEAN CORPUSCULAR HGB 29.2 pg (27.0-31.0); MEAN CORPUSCULAR HGB CONC 31.6 g/dl (33.0-37.0); MEAN PLATELET VOLUME 12.9 fl (9.6-12.3); MONO # 0.4 10*3/uL (0.1-1.0); MONO % 8.7 % (3.0-9.0); NEUT % 40.8 % (47.0-73.0); PLATELET COUNT AUTOMATED 137 10*3/uL (130-400); RED BLOOD COUNT 4.14 10*6/uL (4.50-5.90); WHITE BLOOD COUNT 4.8 10*3/uL (4.8-10.8)
[2023-04-25 08:00] VITALS: BP 143/81
[2023-04-25] MEDS ORDERED: ACETAMINOPHEN325 M2 PO (10:18)
[2023-04-25] MEDS ORDERED: NAMENDA-5 PO (10:18)
[2023-04-25] MEDS ORDERED: AQUAPHOR WITH N50 GM T (10:18)
[2023-04-25] MEDS ORDERED: ENOXAPARIN80 MG/0.2 SC (10:18)
[2023-04-25] MEDS ORDERED: RIVASTIGMINE1 EACH T (10:18)
[2023-04-25] MEDS ORDERED: Coumadin3 MG PO (10:18)
[2023-04-25 11:52] VITALS: BP 148/63
[2023-04-25] MEDS ORDERED: B121000 MCG/1 IM (13:06)
== END 2023-04-25 13:40 | DRG 605 ==
LOC: ED 14:38 → EDHOLD 17:35 → 4E 17:35 → EDHOLD 18:19 → 4E 20:08
PROVIDERS: Internal Medicine; Student in an Organized Health Care Education/Training Program; ADMIT Internal Medicine; ATTEND Internal Medicine
PROC: 0HQ1XZZ Repair Face Skin, External Approach (ICD-10-PCS; principal; 2023-04-19)
DX: S01.81XA Laceration without foreign body of other part of head, initial encounter (principal); D61.818 Other pancytopenia; I10 Essential (primary) hypertension; W18.39XA Other fall on same level, initial encounter; E78.49 Other hyperlipidemia; E55.9 Vitamin D deficiency, unspecified; G30.9 Alzheimer's disease, unspecified; F02.B0 Dementia in other diseases classified elsewhere, moderate, without behavioral disturbance, psychotic disturbance, mood disturbance, and anxiety; L89.321 Pressure ulcer of left buttock, stage 1; L89.311 Pressure ulcer of right buttock, stage 1; L89.151 Pressure ulcer of sacral region, stage 1; M1A.9XX0 Chronic gout, unspecified, without tophus (tophi); R79.1 Abnormal coagulation profile; I71.9 Aortic aneurysm of unspecified site, without rupture; E87.8 Other disorders of electrolyte and fluid balance, not elsewhere classified; Z88.5 Allergy status to narcotic agent; Y93.89 Activity, other specified; Y92.098 Other place in other non-institutional residence as the place of occurrence of the external cause; Y99.8 Other external cause status; Z88.6 Allergy status to analgesic agent; Z91.041 Radiographic dye allergy status; Z88.8 Allergy status to other drugs, medicaments and biological substances; Z79.899 Other long term (current) drug therapy; Z82.49 Family history of ischemic heart disease and other diseases of the circulatory system; Z91.199 Patient's noncompliance with other medical treatment and regimen due to unspecified reason